=== PATIENT | female | born 1990 | race Caucasian/White ===

== ENCOUNTER 2017-05-04 18:37 | Emergency (ER) | payer SELFPAY ==
[2017-05-04 19:15] VITALS: TEMP 97.8
[2017-05-04] MEDS ORDERED: IBUPROFEN 200 MG TAB PO ONE (19:17)
[2017-05-04] MEDS ORDERED: ONDANSETRON ODT 8 MG TAB SL ONE (19:17)
[2017-05-04] MEDS ORDERED: ALUMINUM & MAGNESIUM HYDROXIDE 30 ML UD PO ONE (19:17)
[2017-05-04] MEDS ORDERED: DOXYCYCLINE HYCLATE CAP 100 MG CAP PO ONE (20:12)
[2017-05-04] MEDS ORDERED: PROMETHAZINE HCL 25 MG TAB PO ONE (20:12)
--- NOTE | 2017-05-04 20:16 | ED.PDOC ---
History of Present Illness - General Chief Complaint: General Stated Complaint: generalized body aches, n/v/ fever Time Seen by Provider: 05/04/17 19:17 Source: patient Exam Limitations: no limitations - History of Present Illness Initial Comments: The patient is a 27-year-old female presenting to the emergency room secondary to body aches, headache, nausea and vomiting all starting earlier today. She has had a couple of episodes of diarrhea. She did remove a tick from her body 3 or 4 days ago. Lyme's disease is occasionally seen in this region however there are multiple people in the community currently with nausea vomiting diarrhea. No rash. No altered mental status. No nuchal rigidity or meningeal signs. Timing/Duration: 24 hours Severity: mild Improving Factors: nothing Worsening Factors: nothing Associated Symptoms: fever/chills, headaches, loss of appetite, malaise, nausea/ vomiting Allergies/Adverse Reactions: Allergies NO KNOWN ALLERGY Allergy (Verified 05/04/17 19:31) Home Medications: Ambulatory Orders Doxycycline Hyclate 100 mg PO BID #10 cap 05/04/17 Review of Systems - Review of Systems Constitutional: States: fever, malaise EENTM: States: no symptoms reported Respiratory: States: no symptoms reported Cardiology: States: no symptoms reported Gastrointestinal/Abdominal: States: diarrhea, nausea, vomiting Genitourinary: States: no symptoms reported Musculoskeletal: States: back pain Skin: States: no symptoms reported Neurological: States: headache Endocrine: States: no symptoms reported All other Systems: No Change from Baseline Past Medical History (General) - Patient Medical History Hx Gastroesophageal Reflux: Yes Surgical History: cholecystectomy, other - Vaccination History Hx Tetanus, Diphtheria Vaccination: No Hx Influenza Vaccination: No Hx Pneumococcal Vaccination: No - Social History Hx Tobacco Use: No Hx Alcohol Use: No Family Medical History - Family History Father Hx Cardiac Disease: Yes Physical Exam - Physical Exam General Appearance: Alert, Comfortable, No apparent distress Eye Exam: bilateral normal Ears, Nose, Throat: hearing grossly normal, normal ENT inspection, normal pharynx Neck: full range of motion, supple Respiratory: lungs clear, normal breath sounds, no respiratory distress, no accessory muscle use Cardiovascular/Chest: normal peripheral pulses, regular rate, rhythm, no edema Peripheral Pulses: radial,right: 2+, radial,left: 2+, dorsalis pedis,right: 2+, dorsalis pedis,left: 2+ Gastrointestinal/Abdominal: non tender, soft Rectal Exam: deferred Back Exam: normal inspection, no CVA tenderness, no vertebral tenderness Extremity: normal range of motion, non-tender, normal inspection, no pedal edema , normal capillary refill Neurologic: rotary adjuster II-XII nml as tested, alert, normal mood/affect, oriented x 3 Skin Exam: normal color - no significant rash noted Comments: Vital Signs (72 hours) 05/04/17 19:00 Temperature 97.8 F Pulse Rate [ 86 left] Respiratory 18 Rate Blood Pressure 120/81 [left] O2 Sat by Pulse 99 Oximetry Progress - Progress Progress: 05/04/17 20:17 the patient's 27-year-old female presenting with nausea vomiting and body aches for the last 24 hours. Due to her recent tick exposure the patient will be placed on doxycycline twice daily for the next 5 days. She needs to increase her fluid intake. The patient Will be written for Zofran for as needed use to control any further nausea and vomiting. ER warnings are given for any worsening. She should follow-up with her primary care doctor towards the end of the week. - Results/Orders Results/Orders: Laboratory Results - last 24 hr 05/04/17 05/04/17 19:17 19:32 Urine Color Yellow Urine Appearance Clear Urine pH 6.0 Ur Specific [place] 1.025 Urine Protein Negative Urine Glucose (UA) Negative Urine Ketones 15 H Urine Blood Negative Urine Nitrite Negative Urine Bilirubin Small H Urine Urobilinogen 1.0 Ur Leukocyte Esterase Negative Urine RBC 1-3 Urine WBC 1-3 Ur Epithelial Cells 10-20 Urine Bacteria 1+ Urine Mucus Small Urine HCG, Qual Negative Departure - Departure Clinical Impression: Gastroenteritis Disposition: Discharge to Home or Self Care Condition: Fair Departure Forms: ED Discharge - Pt. Copy, Patient Portal Self Enrollment Instructions: DI for Viral Gastroenteritis -- Adult Diet: bland diet Activity: increase activity as tolerated Prescriptions: Doxycycline Hyclate 100 mg PO BID #10 cap Home Medications: Ambulatory Orders Doxycycline Hyclate 100 mg PO BID #10 cap 05/04/17 Additional Instructions: the patient's 27-year-old female presenting with nausea vomiting and body aches for the last 24 hours. Due to her recent tick exposure the patient will be placed on doxycycline twice daily for the next 5 days. She needs to increase her fluid intake. The patient Will be written for Zofran for as needed use to control any further nausea and vomiting. ER warnings are given for any worsening. She should follow-up with her primary care doctor towards the end of the week.
[2017-05-04 20:41] VITALS: BP 113/76; O2SAT 100
== END 2017-05-04 20:40 | disposition home or self-care (01) ==
LOC: ER 18:37
DX: K52.9 Noninfective gastroenteritis and colitis, unspecified (principal)
CPT/HCPCS: 81001; 81025; Q0169

== ENCOUNTER 2017-10-15 18:44 | Emergency (ER) | payer SELFPAY ==
[2017-10-15] MEDS ORDERED: cefTRIAXone SODIUM 1 GM VIAL IM ONE (20:10)
[2017-10-15] MEDS ORDERED: CIPROFLOXACIN 500 MG TAB PO ONE (20:10)
--- NOTE | 2017-10-15 20:13 | ED.PDOC ---
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 She denies significant vaginal discharge. Minimal STD risk. No history of recurrent yeast infections. No fevers. No blood in the urine. No history of any kidney stones. Timing/Duration: other - 3 weeks Severity: moderate Improving Factors: nothing Worsening Factors: nothing Associated Symptoms: malaise Allergies/Adverse Reactions: Allergies NO KNOWN ALLERGY Allergy (Verified 05/04/17 19:31) Home Medications: Ambulatory Orders Doxycycline Hyclate 100 mg PO BID #10 cap 05/04/17 Ciprofloxacin [Cipro] 500 mg PO BID #14 tab 10/15/17 Review of Systems - Review of Systems Constitutional: States: no symptoms reported EENTM: States: no symptoms reported Respiratory: States: no symptoms reported Cardiology: States: no symptoms reported Gastrointestinal/Abdominal: States: other - suprapubic discomfort. Genitourinary: States: dysuria, frequency, pain Musculoskeletal: States: back pain - left primarily Skin: States: no symptoms reported Neurological: States: no symptoms reported Endocrine: States: no symptoms reported All other Systems: No Change from Baseline Past Medical History (General) - Patient Medical History Hx Asthma: Yes Hx Gastroesophageal Reflux: Yes Surgical History: cholecystectomy, other - Vaccination History Hx Tetanus, Diphtheria Vaccination: No Hx Influenza Vaccination: No Hx Pneumococcal Vaccination: No - Social History Hx Tobacco Use: No Hx Alcohol Use: No - Female History Patient is a Female of Child Bearing Age (10 -59 yrs old): Yes Hx Last Menstrual Period: 10/05/17 Patient : No Family Medical History - Family History Father Family History: Unknown Hx Cardiac Disease: Yes Physical Exam - Physical Exam General Appearance: Alert, Comfortable, No apparent distress Eye Exam: bilateral normal Ears, Nose, Throat: normal ENT inspection Neck: full range of motion, supple Respiratory: lungs clear, normal breath sounds, no respiratory distress, no accessory muscle use Cardiovascular/Chest: normal peripheral pulses, regular rate, rhythm, no edema Peripheral Pulses: radial,right: 2+, radial,left: 2+, dorsalis pedis,right: 2+, dorsalis pedis,left: 2+ Gastrointestinal/Abdominal: soft, other - uprapubic discomfort palpation. No palpable mass. No rebound or peritoneal signs. Rectal Exam: other - pelvic exam shows scant discharge. No definite cervical motion tenderness. Most of the pain is located anteriorly towards bladder Back Exam: no CVA tenderness, no vertebral tenderness Extremity: normal range of motion, non-tender, normal inspection, no pedal edema , normal capillary refill Neurologic: welfare service aide II-XII nml as tested, alert, normal mood/affect, oriented x 3 Skin Exam: normal color Comments: Vital Signs - 24 hr 10/15/17 18:59 Temperature 98.9 F Pulse Rate [ 91 H left] Respiratory 20 Rate Blood Pressure 127/78 [left] O2 Sat by Pulse 98 Oximetry Progress - Progress Progress: 10/15/17 20:46 the patient is a 27-year-old female presenting with what appears to be a significant cystitis. She has received a dose of Rocephin and a dose of oral ciprofloxacin. She'll be placed on ciprofloxacin twice daily for the next 7 days. Urine culture is being performed. Gonorrhea and chlamydia tests are sent out. She needs to keep herself well-hydrated. Motrin can be used for discomfort. ER warnings were given for any significant worsening. She does need to follow up with her primary care doctor in 1-2 weeks for a test of cure for her urinary tract infection. - Results/Orders Results/Orders: Laboratory Tests 10/15/17 10/15/17 19:07 19:09 Urine Color Yellow Urine Appearance Cloudy Urine pH 6.0 Ur Specific [place] >= 1.030 Urine Protein 30 Urine Glucose (UA) Negative Urine Ketones Negative Urine Blood Small H Urine Nitrite Positive H Urine Bilirubin Negative Urine Urobilinogen 0.2 Ur Leukocyte Esterase Moderate H Urine RBC 5-10 H Urine WBC Tntc H Ur Epithelial Cells 3-5 Urine Bacteria 4+ H Urine Mucus Small Urine HCG, Qual Negative gonorrhea chlamydia tests are send out. wet prep is negative. Departure - Departure Clinical Impression: Cystitis Disposition: Discharge to Home or Self Care Condition: Fair Departure Forms: ED Discharge - Pt. Copy, Patient Portal Self Enrollment Instructions: DI for Urinary Tract Infection (UTI) Diet: regular diet Activity: increase activity as tolerated Prescriptions: Ciprofloxacin [Cipro] 500 mg PO BID #14 tab Home Medications: Ambulatory Orders Doxycycline Hyclate 100 mg PO BID #10 cap 05/04/17 Ciprofloxacin [Cipro] 500 mg PO BID #14 tab 10/15/17 Additional Instructions: the patient is a 27-year-old female presenting with what appears to be a significant cystitis. She has received a dose of Rocephin and a dose of oral ciprofloxacin. She'll be placed on ciprofloxacin twice daily for the next 7 days. Urine culture is being performed. Gonorrhea and chlamydia tests are sent out. She needs to keep herself well-hydrated. Motrin can be used for discomfort. ER warnings were given for any significant worsening. She does need to follow up with her primary care doctor in 1-2 weeks for a test of cure for her urinary tract infection.
[2017-10-15] MEDS ORDERED: LIDOCAINE 1% 2 ML VIAL INJ ONE (20:14)
--- NOTE | 2017-10-15 20:26 | RAD ---
EXAM DESCRIPTION: Abdomen Series CLINICAL HISTORY: 27 years Female, rigth lower abd pain COMPARISON: None. FINDINGS: No consolidation. No pneumothorax. No significant pleural effusion. Cardiomediastinal silhouette is unremarkable. Surgical clips in the right upper quadrant are present. Bowel gas pattern appears nonobstructive. Fecal material in the proximal colon noted. No free intraperitoneal air. Osseous structures are unremarkable. IMPRESSION: No acute findings. Electronically signed by: Jeff Monson MD 10/15/2017 8:25 PM CDT
[2017-10-15 20:32] VITALS: TEMP 98.2; O2SAT 99
[2017-10-15 20:58] VITALS: BP 118/79
== END 2017-10-15 20:57 | disposition home or self-care (01) ==
LOC: ER 18:44
DX: N30.90 Cystitis, unspecified without hematuria (principal); J45.909 Unspecified asthma, uncomplicated; K21.9 Gastro-esophageal reflux disease without esophagitis; Z90.49 Acquired absence of other specified parts of digestive tract
CPT/HCPCS: 74019; 81001; 81025; 87077; 87086; 87186; 87210; 87491; 87591; J0696

== ENCOUNTER 2018-08-06 | Emergency (ER) | payer OTHER | END 2018-08-06 18:25 | disposition home or self-care (01) ==

== ENCOUNTER → 2019-08-25 | Outpatient (CLI) | payer MEDICAID ==
--- NOTE | 2019-08-27 12:47 | US ---
EXAM DESCRIPTION: Pelvis Transvaginal: Ultrasound. CLINICAL HISTORY: 29 years Female PAIN IN PELVIS COMPARISON: None. TECHNIQUE: Endovaginal scanning; Parks-scale and Doppler modes. FINDINGS: Uterus 9.5 x 4.8 x 4.2 cm 101.9 mL. Endometrial thickness abnormal; 9.4 mm. Myometrium heterogeneous. Anterior myometrial mass measuring 2.0 x 2.0 x 1.5 cm. Posterior slightly echogenic myometrial mass measuring 2.5 x 2.3 x 1.3 cm. Uterus not retroflexed. Cervix to cyst measuring 6.6 and 4.2 mm. Cul-de-sac no fluid. Right ovary 4.2 x 3.2 x 2.9 cm 20.2 mL.. Increased color Doppler vascularity. Complex anechoic and hypoechoic mass with multiple cystic components or multiseptated complex cyst. Dimensions are 2.8 x 3.0 x 2.9 cm. Some of the septations appear vascular. Regions of echogenicity possible calcification. Taller than wide orientation. Posterior acoustic enhancement. No free fluid. Left ovary 1.5 x 1.5 x 0.9 cm 1 mL. Normal color Doppler vascularity. No follicles or cysts. No adnexal mass or free fluid. IMPRESSION: 1. 3.0 cm complex right ovarian cyst, possibly dermoid or endometrioma. No adnexal fluid. [facility] Best Practice recommendations: Dermoid: <= 5 cm: MR w/IV contrast. If not surgically resected, US f/u annually. >5 cm: Surgical evaluation. If not surgically resected, MR w/IVC; then US f/u annually. 2. Left ovary is unremarkable, no mass or fluid. 3. 2 fibroids in the uterus which is normal position and size. Abnormal thickening of the endometrium with no fluid. Nabothian cervical cyst. No fluid in the cul-de-sac Electronically signed by: Corbin Burgess MD 08/27/2019 12:45 PM CDT
== END ==
LOC: US 08:00 → LAB.O 10:54
PROVIDERS: ATTEND Family Medicine
DX: Z00.00 Encounter for general adult medical examination without abnormal findings (principal); N89.8 Other specified noninflammatory disorders of vagina; N88.8 Other specified noninflammatory disorders of cervix uteri; N83.201 Unspecified ovarian cyst, right side; D25.9 Leiomyoma of uterus, unspecified; R93.89 Abnormal findings on diagnostic imaging of other specified body structures

== ENCOUNTER 2019-11-27 11:21 | Emergency (ER) | payer MEDICAID ==
[2019-11-27] MEDS ORDERED: ONDANSETRON INJ 4 MG/2 ML VIAL IV ONE (11:32)
[2019-11-27] MEDS ORDERED: SODIUM CHLORIDE 0.9% 1000ML 1,000 ML IVS ONE (11:32)
--- NOTE | 2019-11-27 11:34 | ED.PDOC ---
History of Present Illness - General Chief Complaint: GI Problem Stated Complaint: nausea and passed out Time Seen by Provider: 11/27/19 11:25 Source: patient, RN notes reviewed, Vital Signs reviewed, family Exam Limitations: no limitations - History of Present Illness Initial Comments: Patient is a 29-year-old female who presents the ED with nausea, vomiting and syncope. States she began having crampy abdominal pain with nausea and vomiting yesterday and was unable to eat anything yesterday. States after vomiting yesterday afternoon she thinks she passed out briefly. She denies hitting her head or any injury. States today she has felt weak, fatigued and nauseated but has not vomited today. Denies any fever, diarrhea, dysuria. States her last menstrual period was 1 week ago. Allergies/Adverse Reactions: Allergies NO KNOWN ALLERGY Allergy (Verified 11/27/19 11:32) Home Medications: Ambulatory Orders Doxycycline Hyclate 100 mg PO BID #10 cap 05/04/17 Ciprofloxacin [Cipro] 500 mg PO BID #14 tab 10/15/17 Ondansetron [Ondansetron Odt] 4 mg PO Q6H PRN #20 tab 11/27/19 Review of Systems - Review of Systems Constitutional: Denies: chills, fever EENTM: Denies: nose congestion, throat pain Respiratory: Denies: cough, short of breath Cardiology: States: chest pain, syncope. Denies: edema, palpitations Gastrointestinal/Abdominal: States: abdominal pain, nausea, vomiting. Denies: diarrhea Genitourinary: Denies: dysuria, frequency, hematuria Musculoskeletal: Denies: back pain, neck pain Skin: Denies: rash All other Systems: Reviewed and Negative Past Medical History (General) - Patient Medical History Hx Asthma: Yes Hx Gastroesophageal Reflux: Yes Hx Cancer: No Hx Hepatitis C: No Surgical History: cholecystectomy - Vaccination History Hx Tetanus, Diphtheria Vaccination: No Hx Influenza Vaccination: No Hx Pneumococcal Vaccination: No Immunizations Up to Date: No - Social History Hx Tobacco Use: No Hx Alcohol Use: No - Female History Patient is a Female of Child Bearing Age (10 -59 yrs old): Yes Hx Last Menstrual Period: 10/05/17 Patient : No Family Medical History - Family History Father Family History: Unknown Hx Family Hypertension: Yes Hx Cardiac Disease: Yes - dad Physical Exam - Physical Exam General Appearance: Alert, Anxious, Other - Pt is anxious and rapid breathing. improved with counseling to slow her breathing Eye Exam: bilateral normal - PERRL Ears, Nose, Throat: normal pharynx, other - Moist oropharynx Neck: non-tender, full range of motion, supple, other - No C, T, L spine tenderness Respiratory: chest non-tender, lungs clear, normal breath sounds, no respiratory distress Cardiovascular/Chest: regular rate, rhythm, no edema Gastrointestinal/Abdominal: non tender, soft, no pulsatile mass Back Exam: no CVA tenderness, no vertebral tenderness Extremity: normal range of motion, non-tender, normal inspection Neurologic: no motor/sensory deficits, alert, normal mood/affect Skin Exam: normal color, warm/dry Progress - Progress Progress: 11/27/19 13:11 Patient presents to ED for nausea, vomiting and one syncopal episode yesterday. States that she went all day without eating yesterday and had several episodes of vomiting yesterday. After vomiting yesterday afternoon, she had a syncopal episode. She denies any injury from this, headache, neck pain or back pain. On exam today she has mild tenderness in the upper abdomen. CT performed to evaluate for infection versus obstruction and is unremarkable. Labs and vital signs are reassuring. She feels improved after IV fluids and is tolerating p.o. fluids well. She feels comfortable going home and will follow up with her PCP in 1 to 2 days for recheck. Strict return precautions given. - Results/Orders Results/Orders: EKG- NSR, rate 70, nml intervakls, no ST abnormality CHEST XRAY EXAM DESCRIPTION: Chest,1 View: CR/DR/XR. CLINICAL HISTORY: 29 years Female chest pain COMPARISON: CT scan abdomen and pelvis with IV contrast on the same visit. TECHNIQUE: ONE VIEW PORTABLE. AP 1150 hours, upright position. FINDINGS: Bilateral lung volumes unremarkable with no acute infiltrate. No acute pleural process. Cardiopulmonary vascular structures and mediastinal silhouette are negative. No acute bony thoracic abnormalities. IMPRESSION: No radiographic evidence of acute cardiopulmonary disease. CT ABD/PELVIS IMPRESSION: 1. 2 mm radiodense stone nonobstructing in the inferior collecting system right kidney with no hydronephrosis. Possible small cortical calcifications or stones bilaterally. Left kidney with no hydronephrosis. Bilateral ureters are unremarkable. 2. Possible tiny hiatal hernia. 11/27/19 11:31 IV:Start .ONCE 11/27/19 11:32 Hold Metformin x 48Hrs [id number] 11/27/19 11:45 EKG .ONCE Laboratory Results - last 24 hr 11/27/19 11/27/19 11/27/19 11:20 11:29 11:29 WBC 10.4 RBC 4.71 Hgb 15.1 Hct 42.9 MCV 91.1 MCH 32.1 H MCHC 35.2 RDW 12.1 Plt Count 349 MPV 7.7 Absolute Neuts (auto) 6.30 Absolute Lymphs (auto) 3.00 Absolute Monos (auto) 0.80 Absolute Eos (auto) 0.20 Absolute Basos (auto) 0.00 Neutrophils % 61.3 Lymphocytes % 28.7 Monocytes % 7.3 Eosinophils % 2.3 Basophils % 0.4 Sodium 138 Potassium 3.6 Chloride 102 Carbon Dioxide 23 Anion Gap 16.6 BUN 14 Creatinine 0.84 BUN/Creatinine Ratio 16.7 POC Glucose 97 Random Glucose 99 Serum Osmolality 276.2 Calcium 9.8 Total Bilirubin 1.1 H AST 23 ALT 29 Alkaline Phosphatase 80 Troponin I Serum Total Protein 7.9 Albumin 4.5 Globulin 3.4 Albumin/Globulin Ratio 1.3 Lipase 26 Serum HCG, Qual Urine Color Urine Appearance Urine pH Ur Specific [place] Urine Protein Urine Glucose (UA) Urine Ketones Urine Blood Urine Nitrite Urine Bilirubin Urine Urobilinogen Ur Leukocyte Esterase Urine RBC Urine WBC Ur Epithelial Cells Amorphous Sediment Urine Bacteria 11/27/19 11/27/19 11/27/19 11:29 11:29 11:48 WBC RBC Hgb Hct MCV MCH MCHC RDW Plt Count MPV Absolute Neuts (auto) Absolute Lymphs (auto) Absolute Monos (auto) Absolute Eos (auto) Absolute Basos (auto) Neutrophils % Lymphocytes % Monocytes % Eosinophils % Basophils % Sodium Potassium Chloride Carbon Dioxide Anion Gap BUN Creatinine BUN/Creatinine Ratio POC Glucose Random Glucose Serum Osmolality Calcium Total Bilirubin AST ALT Alkaline Phosphatase Troponin I < 0.02 Serum Total Protein Albumin Globulin Albumin/Globulin Ratio Lipase Serum HCG, Qual Negative Urine Color Yellow Urine Appearance Sl cloudy Urine pH 8.5 H Ur Specific [place] 1.015 Urine Protein Negative Urine Glucose (UA) Negative Urine Ketones Trace Urine Blood Negative Urine Nitrite Negative Urine Bilirubin Negative Urine Urobilinogen 0.2 Ur Leukocyte Esterase Negative Urine RBC 0 Urine WBC 1-3 Ur Epithelial Cells 40-50 Amorphous Sediment Trace Urine Bacteria 1+ Departure - Departure Clinical Impression: Vasovagal syncope, Abdominal cramping Vomiting Qualifiers: Vomiting type: unspecified Vomiting Intractability: non-intractable Nausea presence: with nausea Qualified Code(s): R11.2 - Nausea with vomiting, unspecified Time of Disposition: 13:08 Disposition: Discharge to Home or Self Care Condition: Good Departure Forms: ED Discharge - Pt. Copy, Patient Portal Self Enrollment Instructions: Nausea and Vomiting, Adult (DC) Diet: bland diet Activity: increase activity as tolerated Referrals: JOSI RICE [Primary Care Provider] - 1-2 Days Prescriptions: Ondansetron [Ondansetron Odt] 4 mg PO Q6H PRN #20 tab PRN Reason: Nausea Home Medications: Ambulatory Orders Doxycycline Hyclate 100 mg PO BID #10 cap 05/04/17 Ciprofloxacin [Cipro] 500 mg PO BID #14 tab 10/15/17 Ondansetron [Ondansetron Odt] 4 mg PO Q6H PRN #20 tab 11/27/19
--- NOTE | 2019-11-27 12:50 | CT ---
EXAM DESCRIPTION: Abdomen/Pelvis w/Contrast: Computed Tomography. CLINICAL HISTORY: 29 years Female abd pain, vomiting COMPARISON: None. TECHNIQUE: Spiral-axial scans at 5 mm intervals through the abdomen and pelvis, after nonionic IV contrast and water-soluble oral contrast Coronal and sagittal. 2.0 mm reconstructions. No delayed scans. No adverse reactions. Total Exam DLP: 1252 mGy-cm. This exam was performed according to our departmental dose-optimization program which includes automated exposure control, adjustment of the mA and/or kV according to patient size and/or use of iterative reconstruction technique; to reduce radiation dose to as low as reasonably achievable (ALARA). Technically difficult study due to patient large body habitus. FINDINGS: Lung bases and pleura: Negative. Liver, Stomach, Spleen, Adrenal Glands: Possible tiny hiatal hernia. No focal lesions in the spleen or liver. Progressive the stomach is negative along with other organs. Pancreas, Gallbladder, Ducts: Surgical clips gallbladder fossa with no fluid. Distention of the common bile duct is physiologic postcholecystectomy. No nodes or fluid. Kidneys and Ureters: 2 mm radiodense stone inferior collecting system right kidney with no hydronephrosis. Possible small cortical calcifications bilaterally. No perirenal fluid. Ureters are unremarkable. Mesentery: No abnormalities. Aorta: Negative. Small Bowel: Normal caliber. Terminal Ileum/Cecum: Normal caliber. Appendix not seen. Colon: Minimal fecal matter in the ascending colon and in the rectum. Normal caliber. Pelvic Organs: Uterus in unremarkable orientation. Ovaries and urinary bladder visualized with no fluid in the cul-de-sac. 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 Early bilateral hip joint arthrosis. Abdominal Wall/Back Soft Tissues: Minimal diastases at the umbilicus with no incarcerated bowel. Small fatty inguinal hernias bilaterally with no incarcerated bowel small lymph nodes. IMPRESSION: 1. 2 mm radiodense stone nonobstructing in the inferior collecting system right kidney with no hydronephrosis. Possible small cortical calcifications or stones bilaterally. Left kidney with no hydronephrosis. Bilateral ureters are unremarkable. 2. Possible tiny hiatal hernia. Electronically signed by: Corbin Burgess MD 11/27/2019 12:48 PM CDT
--- NOTE | 2019-11-27 12:51 | RAD ---
EXAM DESCRIPTION: Chest,1 View: CR/DR/XR. CLINICAL HISTORY: 29 years Female chest pain COMPARISON: CT scan abdomen and pelvis with IV contrast on the same visit. TECHNIQUE: ONE VIEW PORTABLE. AP 1150 hours, upright position. FINDINGS: Bilateral lung volumes unremarkable with no acute infiltrate. No acute pleural process. Cardiopulmonary vascular structures and mediastinal silhouette are negative. No acute bony thoracic abnormalities. IMPRESSION: No radiographic evidence of acute cardiopulmonary disease. Electronically signed by: Corbin Burgess MD 11/27/2019 12:50 PM CDT
[2019-11-27 13:03] VITALS: BP 107/63; O2SAT 100
[2019-11-27 13:15] VITALS: TEMP 97.1
== END 2019-11-27 13:15 | disposition home or self-care (01) ==
LOC: ER 11:21
DX: R55 Syncope and collapse (principal); R11.2 Nausea with vomiting, unspecified; R10.9 Unspecified abdominal pain; N20.0 Calculus of kidney; K21.9 Gastro-esophageal reflux disease without esophagitis; J45.909 Unspecified asthma, uncomplicated; Z90.49 Acquired absence of other specified parts of digestive tract
CPT/HCPCS: 36415; 71045; 74177; 80053; 81001; 82948; 83690; 84484; 84703; 85025; 93005; J2405; J7030